=== PATIENT | female | born 1960 | race Caucasian/White ===

== ENCOUNTER 2021-07-27 08:18 | Emergency (ER) | payer BC, SELFPAY ==
[2021-07-27 08:49] VITALS: BP 146/76; PULSE 73; RESP 16; TEMP 37.1; O2SAT 100
--- NOTE | 2021-07-27 09:18 | ED.EAR ---
HPI - Ear Problem General Chief complaint: Ear Stated complaint: ear pain Source: patient and RN notes reviewed Limitations: no limitations History of Present Illness HPI Narrative: The patient, previously mostly healthy, presents with right ear discomfort. Patient states he is 1/2-week history of right ear fleeting pains, that is worse with palpation. No fever, URI?sinusitis, discharge.ENT history remarkable for she was seen by her PMD had wax removed well before this earlier in the month, and recent treatment for right corneal ulcer. There is associated, but preceding, mild decrease in hearing; patient advised to see ENT in follow-up. Vital signs remarkable for blood pressure 146/76. The patient has been informed that they may have pre-hypertension or Hypertension based on a BP reading in the department. I recommend that the patient call the primary care provider listed on their discharge instructions or a physician of their choice this week to arrange follow up for further evaluation of possible pre-hypertension or Hypertension Related Data Home Medications Medication Instructions Recorded Confirmed dextroamphetamine-amphetamine 20 mg PO DAILY 07/27/21 07/27/21 [Adderall XR] levothyroxine 50 mcg PO DAILY 07/27/21 07/27/21 moxifloxacin 0.5 drp OPHTHALMIC (EYE) DAILY 07/27/21 07/27/21 Allergies Allergy/AdvReac Type Severity Reaction Status Date / Time Sulfa (Sulfonamide Allergy Unknown Other Verified 07/27/21 08:19 Antibiotics) Review of Systems Review of Systems: General/Constitutional: No weight loss,fever Eyes: N0: Redness,discharge Ears/Nose/Throat: No: Epistaxis,ear discharge Respiratory: Denies: Hemoptysis Gastrointestinal: No Vomiting, Bleeding-rectal Skin: No Lumps, eruption Neurologic: No Focal Weakness,Sz Hematologic: Denies: Petechiae/Purpura Psychiatric: No: Suicida ideationl All Other Systems: Reviewed and Negative PMFSH Social History Social History Smoking status: Never smoker Alcohol intake: current Comments At time of signature, agree with nursing past medical, surgical, social and family history. There is no relevant family history pertinent to the presenting complaint Exam Narrative: General Appearance: Well appearing, Well nourished EYE: PERRLA, Conjunctiva clear Ears: Right EAC with mild erythema/inflammation; left auditory canal normal, TM normal Nose: Rhinorrhea, Mucousal erythema Mouth/Throat: MM moist, Uvula midline, Pharyngeal erythema , Supple, No adenopathy Cardiovascular: RRR, No JVD Musculoskeletal: Non tender, Normal strength, Warm, Dry Neurological: A&O x3, Normal affect Course Vital Signs Vital signs: Vital Signs Temperature 98.8 F 07/27/21 08:49 Pulse Rate 73 07/27/21 08:49 Respiratory Rate 16 07/27/21 08:49 Blood Pressure 146/76 H 07/27/21 08:49 Pulse Oximetry 100 07/27/21 08:49 Temperature 98.8 F 07/27/21 08:49 Pulse Rate 73 07/27/21 08:49 Respiratory Rate 16 07/27/21 08:49 Blood Pressure 146/76 H 07/27/21 08:49 Pulse Oximetry 100 07/27/21 08:49 Medical Decision Making Vital Signs Vital Signs: Vital Signs Temperature 98.8 F 07/27/21 08:49 Pulse Rate 73 07/27/21 08:49 Respiratory Rate 16 07/27/21 08:49 Blood Pressure 146/76 H 07/27/21 08:49 Pulse Oximetry 100 07/27/21 08:49 Temperature 98.8 F 07/27/21 08:49 Pulse Rate 73 07/27/21 08:49 Respiratory Rate 16 07/27/21 08:49 Blood Pressure 146/76 H 07/27/21 08:49 Pulse Oximetry 100 07/27/21 08:49 Discharge Plan Discharge Clinical Impression: Otitis externa Patient Disposition: Home, Self-Care Condition: Stable Instructions: Swimmer's [facility] (ED) Prescriptions: New llzaabou-kxnwwcyam-NT 3.5-10,000-1 mg/mL-unit/mL-% solution 4 drop RIGHT EAR Q8H Qty: 10 RF: 0 No Action dextroamphetamine-amphetamine [Adderall XR] 20 mg capsule,extended release 24hr 20 mg PO DAILY RF: 0 levoth
== END 2021-07-27 09:26 | disposition home or self-care (01) ==
PROVIDERS: Emergency Provider Emergency Medicine; PCP Internal Medicine
DX: H60.91 Unspecified otitis externa, right ear (principal)
CPT/HCPCS: 99213; G0463

== ENCOUNTER 2023-01-05 14:31 | Emergency (ER) | payer MEDICAID, SELFPAY ==
[2023-01-05 14:42] VITALS: BP 129/81; PULSE 84; RESP 16; TEMP 36.8; O2SAT 99
--- NOTE | 2023-01-05 14:44 | ED.GENADULT ---
HPI - General Adult General Chief complaint: Head Injury Stated complaint: Fall Time Seen by Provider: 01/05/23 14:52 Source: patient, RN notes reviewed and old records reviewed Mode of arrival: ambulatory Limitations: no limitations History of Present Illness HPI narrative: 62-year-old female presents to the [facility] post fall. Patient states that she was playing with her grandson when she went to kick a ball and fell backwards hitting the back of her head. Reports nausea and blurry vision. No midline tenderness. Related Data Home Medications Medication Instructions Recorded Confirmed levothyroxine 50 mcg tablet 50 mcg PO DAILY 07/27/21 01/05/23 Allergies Allergy/AdvReac Type Severity Reaction Status Date / Time Sulfa (Sulfonamide AdvReac Unknown Nausea and Verified 01/05/23 15:50 Antibiotics) Vomiting Review of Systems Review of Systems: All systems reviewed & are unremarkable except as noted in HPI and below Constitutional: Constitutional: Reports no additional constitutional complaints Eyes: Eyes: Reports no additional eye complaints ENT: Reports system reviewed and no additional complaints, except as documented Cardiovascular: Cardiovascular: Reports no additional cardiovascular complaints, Denies chest pain and Denies dyspnea Respiratory: Respiratory: Reports no additional respiratory complaints, Denies chest congestion, Denies cough and Denies dyspnea Gastrointestinal: Gastrointestinal: Reports no additional gastrointestinal complaints, Denies abdominal pain, Denies nausea and Denies vomiting Musculoskeletal: Musculoskeletal: Reports no additional musculoskeletal complaints Integumentary/Breasts: Skin/Breast: Reports system reviewed and no additional complaints, except as docu Neurologic: Reports as per HPI, Reports headache(s) and Reports other (blurry vision) Psychiatric: Psychiatric: Reports no additional psychiatric complaints Allergic/Immunologic: Allergic/Immunologic: Reports no additional allergic/immunologic complaints PMFSH Social History Social History Smoking status: Never smoker Alcohol intake: current Comments At the time of my signature, I reviewed and agree with the nursing past medical, surgical, social, and family history. There is no relevant family history pertinent to the patient complaint. Exam Const: General: cooperative, healthy appearing, comfortable, no acute distress, well developed, alert and well nourished Nutritional Appearance: well nourished Orientation/consciousness: patient oriented x3 Limitations: no limitations HENMT: Head: normal to inspection Ears: hearing grossly normal bilaterally and external ears normal Face/Nose/Sinus: Normal external nose present, Normal nares present, Normal nasal mucous membranes and turbinates present and normal facial exam Face and sinus: normal facial exam Mouth: Yes Normal oral and palatal mucosa present, Yes lip normal and Yes moist mucous membranes Throat: posterior oropharynx normal and uvula midline Eyes: General: appearance normal, both eyes and all related structures Alignment and Position: alignment normal Periorbital: periorbital findings normal Conjunctivae: conjunctivae normal Pupils: Equal, round and reactive pupils present EOM: EOMs intact bilaterally Neck: Neck: normal visual inspection, full ROM, no lymphadenopathy and no meningeal signs Chest: Chest palpation & inspection: normal inspection of the chest Resp: Effort & Inspection: normal respiratory effort and able to speak in complete sentences Auscultation: clear to auscultation bilaterally, no crackles, no rales, no rhonchi and no wheezes Cardio: Rate: regular rate Rhythm: regular rhythm Back/Spine/Pelvis: Back: no CVA tenderness Cervical Spine: normal cervical lordosis, cervical ROM normal, No cervical muscular tenderness and No Cervical spine tenderness Thoracic/Lumbar Spine: thoracic
== END 2023-01-05 15:08 | disposition short-term general hospital (02) ==
LOC: EXPCOLL 14:37
PROVIDERS: Emergency Provider Nurse Practitioner; PCP Internal Medicine
DX: S09.90XA Unspecified injury of head, initial encounter (principal); W19.XXXA Unspecified fall, initial encounter; E03.9 Hypothyroidism, unspecified
CPT/HCPCS: 99213; G0463

== ENCOUNTER 2023-01-05 15:29 | Emergency (ER) | payer MEDICAID, SELFPAY ==
--- NOTE | ~2023-01-05 | CT_ITS ---
EXAMINATION: CT cervical spine wo con DATE: 01/05/2023 16:21 INDICATION: fall TECHNIQUE: Computed tomography (CT) of the cervical spine was performed without intravenous contrast. Automated exposure control and iterative reconstruction technique were employed. The dose-length pro duct was 175.44 mGy-cm. COMPARISON: None. FINDINGS: Vertebral Body Alignment: Intact. Straightening of the cervical lordosis which can occur with positio rito or muscle spasm.. Craniocervical and atlantoaxial alignment: Moderate degenerative change. Alignment intact. Osseous structures/fracture: No evidence of a lytic or blastic process in the visualized spine. No e vidence of acute fracture. . Cervical soft tissues: The paraspinal soft tissues planes are maintained. Biapical pleural scarring. Degenerative changes: Degenerative changes, without severe central canal narrowing. Moderate-severe r ight C5-6 and left C6-7 neural foraminal narrowing. IMPRESSION: No acute fracture or traumatic malalignment in the cervical spine. Reviewed, dictated and finalized at location K.
--- NOTE | ~2023-01-05 | CT_ITS ---
EXAMINATION: CT brain wo con DATE: 01/05/2023 16:19 INDICATION: fall . TECHNIQUE: Computed tomography (CT) of the head was performed without intravenous contrast. The mA wa s adjusted according to patient size. Iterative reconstruction technique was employed. The dose-lengt h product was 605.33 mGy-cm. COMPARISON: MRI brain 11/27/2017. FINDINGS: No acute intracranial hemorrhage or extra-axial fluid collection. No hydrocephalus, mass, or herniation. No acute ischemic infarct. Unremarkable dural venous sinus attenuation. No acute osseous abnormality. The aerated spaces are clear. IMPRESSION: No acute intracranial process. Reviewed, dictated and finalized at location K.
[2023-01-05 15:39] VITALS: BP 141/85; PULSE 75; RESP 16; TEMP 36.6; O2SAT 100
--- NOTE | 2023-01-05 15:56 | ED.HEATRA ---
HPI - Head Injury General Chief complaint: Head Injury Stated complaint: head injury Time Seen by Provider: 01/05/23 15:46 History of Present Illness HPI Narrative: Patient is a 62-year-old female presenting after head injury. Patient states that she was playing with her grandson when she accidentally stepped on a ball and fell backwards striking her head. Denies losing consciousness. States that she has a headache and feels a bit nauseated. States that she had an episode of some blurred vision in her left eye that has resolved. Patient denies neck or back pain. Remembers the entire event. She denies further pain or complaints. Denies numbness or weakness. Denies difficulty ambulating. Related Data Home Medications Medication Instructions Recorded Confirmed levothyroxine 50 mcg tablet 50 mcg PO DAILY 07/27/21 01/05/23 Allergies Allergy/AdvReac Type Severity Reaction Status Date / Time Sulfa (Sulfonamide AdvReac Unknown Nausea and Verified 01/05/23 15:50 Antibiotics) Vomiting Review of Systems Review of Systems: All systems reviewed & are unremarkable except as noted in HPI and below PMFSH Social History Social History Smoking status: Never smoker Alcohol intake: current Exam Narrative: GENERAL: Well-appearing, well-nourished, and in no acute distress. HEAD: Normocephalic, atraumatic. EYES: PERRLA and EOMI. ENT: Nares clear, no rhinorrhea or epistaxis. Mucous membranes moist. NECK: Supple. No midline tenderness CHEST: Clear to auscultation. No respiratory distress. HEART: Regular rate and rhythm ABDOMEN: Soft, nontender, nondistended EXTREMITIES: Normal range of motion. No edema. SKIN: Warm, dry, no rash. NEURO: No focal deficits. Alert and oriented x3. 5 out of 5 strength in all extremities, no sensory deficits PSYCH: Normal mood and affect. Course Vital Signs Vital signs: Vital Signs Temperature 97.8 F 01/05/23 15:39 Pulse Rate 75 01/05/23 15:39 Respiratory Rate 16 01/05/23 15:39 Blood Pressure 141/85 H 01/05/23 15:39 Pulse Oximetry 100 01/05/23 15:39 Temperature 97.8 F 01/05/23 15:39 Pulse Rate 75 01/05/23 15:39 Respiratory Rate 16 01/05/23 15:39 Blood Pressure 141/85 H 01/05/23 15:39 Pulse Oximetry 100 01/05/23 15:39 MDM - Head Injury MDM Narrative Medical decision making narrative: Patient is a 62-year-old female presenting after mechanical fall. Vitals within normal limits. Patient is well-appearing and in no acute distress. Exam for p.o. Tylenol and Zofran. Will obtain CT brain and cervical spine. CT brain and cervical spine show no acute abnormalities. On reevaluation, the patient states that she feels well. Discussed the reassuring imaging. Advised that she follow-up with her PCP. Recommended Tylenol and ibuprofen for pain control. Appropriate return precautions given. Discharged in stable condition Differential Diagnosis Differential diagnosis: Likely concussion without loss of consciousness, epidural hematoma, closed head injury, subarachnoid hematoma and subdural hematoma Imaging Data Radiologist's impression: ITS Impressions Head CT 01/05/23 16:25 IMPRESSION: No acute intracranial process. Cervical Spine CT 01/05/23 16:27 IMPRESSION: No acute fracture or traumatic malalignment in the cervical spine. Critical Care Time Critical Care Time Critical Care Time: No Discharge Plan Discharge Clinical Impression: Closed head injury Patient Disposition: Home, Self-Care Condition: Stable Instructions: Antibiotic Form, Head Injury (ED) Additional Instructions: Your CT scans today show no acute abnormalities. Please use Tylenol and ibuprofen for pain control. Please follow-up with your primary care provider. If your pain worsens, you develop numbness or weakness, vomiting, or other concerning symptoms arise, ple
[2023-01-05] MEDS: ACETAMINOPHEN 500 MG TABLET 1000 MG PO (16:07)
[2023-01-05] MEDS: ONDANSETRON HCL ODT 4 MG TABLET PO (16:07)
== END 2023-01-05 17:30 | disposition home or self-care (01) ==
PROVIDERS: Emergency Provider Emergency Medicine; PCP Internal Medicine
DX: S09.90XA Unspecified injury of head, initial encounter (principal); W01.0XXA Fall on same level from slipping, tripping and stumbling without subsequent striking against object, initial encounter
CPT/HCPCS: 70450; 72125; 99284; A9270

== ENCOUNTER 2023-01-05 19:56 | Emergency (ER) | payer MEDICAID, SELFPAY ==
[2023-01-05 20:00] VITALS: BP 157/88; PULSE 65; RESP 16; TEMP 36.5; O2SAT 100
--- NOTE | 2023-01-05 20:02 | ED.FEMALEGU ---
HPI - Female Genitourinary General Chief complaint: Urogenital-Female Stated complaint: uti complaint Time Seen by Provider: 01/05/23 20:30 Source: patient, RN notes reviewed and old records reviewed Mode of arrival: ambulatory Limitations: no limitations History of Present Illness HPI Narrative: 62-year-old female presents to the [facility] with complaints of urgency, frequency, unable to empty bladder and burning since being discharged from the ER this evening. States when she was in the ER she did not urinate the entire time and thinks that is what caused it. Denies any abdominal pain, nausea, vomiting, diarrhea. Denies any CVA tenderness or back pain. Onset (ago): hour(s) Related Data Home Medications Medication Instructions Recorded Confirmed levothyroxine 50 mcg tablet 50 mcg PO DAILY 07/27/21 01/05/23 Allergies Allergy/AdvReac Type Severity Reaction Status Date / Time Sulfa (Sulfonamide AdvReac Unknown Nausea and Verified 01/05/23 15:50 Antibiotics) Vomiting Review of Systems Review of Systems: All systems reviewed & are unremarkable except as noted in HPI and below Constitutional: Constitutional: Reports no additional constitutional complaints Eyes: Eyes: Reports no additional eye complaints ENT: Reports system reviewed and no additional complaints, except as documented Cardiovascular: Cardiovascular: Reports no additional cardiovascular complaints, Denies chest pain and Denies dyspnea Respiratory: Respiratory: Reports no additional respiratory complaints, Denies chest congestion, Denies cough and Denies dyspnea Gastrointestinal: Gastrointestinal: Reports no additional gastrointestinal complaints, Denies abdominal pain, Denies nausea and Denies vomiting Genitourinary: Genitourinary: Reports as per HPI Musculoskeletal: Musculoskeletal: Reports no additional musculoskeletal complaints Integumentary/Breasts: Skin/Breast: Reports system reviewed and no additional complaints, except as docu Neurologic: Reports system reviewed and no additional complaints, except as documented Psychiatric: Psychiatric: Reports no additional psychiatric complaints Allergic/Immunologic: Allergic/Immunologic: Reports no additional allergic/immunologic complaints [facility] Social History Social History Smoking status: Never smoker Alcohol intake: current Comments At the time of my signature, I reviewed and agree with the nursing past medical, surgical, social, and family history. There is no relevant family history pertinent to the patient complaint. Exam Const: General: cooperative, healthy appearing, comfortable, no acute distress, well developed, alert and well nourished Nutritional Appearance: well nourished Orientation/consciousness: patient oriented x3 Limitations: no limitations HENMT: Head: normal to inspection Ears: hearing grossly normal bilaterally and external ears normal Face/Nose/Sinus: Normal external nose present, Normal nares present, Normal nasal mucous membranes and turbinates present and normal facial exam Face and sinus: normal facial exam Mouth: Yes lip normal Eyes: General: appearance normal, both eyes and all related structures Alignment and Position: alignment normal Periorbital: periorbital findings normal Conjunctivae: conjunctivae normal Pupils: Equal, round and reactive pupils present EOM: EOMs intact bilaterally Neck: Neck: normal visual inspection, full ROM, no lymphadenopathy and no meningeal signs Chest: Chest palpation & inspection: normal inspection of the chest Resp: Effort & Inspection: normal respiratory effort and able to speak in complete sentences Auscultation: clear to auscultation bilaterally, no crackles, no rales, no rhonchi and no wheezes Cardio: Rate: regular rate Rhythm: regular rhythm Back/Spine/Pelvis: Cervical Spine: cervical ROM normal Thoracic/Lumbar Spine: No thoracic spinal tenderness Skin: Ge
== END 2023-01-05 20:40 | disposition home or self-care (01) ==
PROVIDERS: Emergency Provider Nurse Practitioner; PCP Internal Medicine
DX: N39.0 Urinary tract infection, site not specified (principal); E03.9 Hypothyroidism, unspecified
CPT/HCPCS: 81003; 87086; 87088; 99213; G0463

== ENCOUNTER 2023-05-16 08:07 | Emergency (ER) | payer BC, SELFPAY ==
--- NOTE | 2023-05-16 08:12 | ED.EAR ---
HPI - Ear Problem General Chief complaint: Ear Stated complaint: Left Ear Irritation Source: patient and RN notes reviewed History of Present Illness HPI Narrative: 63 yo F presents to urgent care with complaints of left ear pain since the beginning of March. Pt states it originated when she pulled a large amount of wax out of her left ear. Pt states she thought she might have scratched her ear but the pain is not going away and it is now radiating down her left lateral neck and up her left side of head. Pt reports tragus pain. Denies any hearing loss, fevers, chills, sore throat, congestion, chest pain, SOB, or vomiting. Related Data Home Medications Medication Instructions Recorded Confirmed levothyroxine 50 mcg tablet 50 mcg PO DAILY 07/27/21 01/05/23 Allergies Allergy/AdvReac Type Severity Reaction Status Date / Time Sulfa (Sulfonamide AdvReac Unknown Nausea and Verified 01/05/23 15:50 Antibiotics) Vomiting Review of Systems Review of Systems: CONSTITUTIONAL: Denies fever, chills, or sweats. EYES: Denies visual changes, redness, or discharge. ENT: Left outer and inner ear pain, tenderness to to left lateral neck CARDIOVASCULAR: Denies chest pain, palpitations, or edema. RESPIRATORY: Denies cough or dyspnea. GASTROINTESTINAL: Denies abdominal pain, nausea, vomiting, or diarrhea. GENITOURINARY: Denies dysuria or hematuria. SKIN: Denies rash or itching. MUSCULOSKELETAL: Denies back pain, joint pain, or myalgia. NEUROLOGIC: Left sided PAIZ Pertinent positives per HPI. PMFSH Social History Social History Smoking status: Never smoker Alcohol intake: current Comments At the time of my signature, I reviewed and agree with the nursing past medical, surgical, social, and family history. There is no relevant family history pertinent to the patient complaint. Exam Narrative: GENERAL: This is a well-nourished, well-developed patient, in no apparent distress. HEAD: normocephalic, atraumatic. EYES: Sclera clear/white. Vision is grossly intact. EARS: auditory canals clear and without drainage, TMs normal without perforation. Hearing grossly intact. Left posterior tragus tender with possible, tiny, pustule. no drainage or erythema noted. NOSE: External nose normal with no obvious nasal discharge, nares without redness, no rhinorrhea. THROAT: Mucous membranes moist, posterior pharynx clear. NECK: Left, cervical,tenderness with lymphadenopathy. CARDIOVASCULAR: Regular rate and rhythm without murmurs, gallops, or rubs. RESPIRATORY: Clear to auscultation. Breath sounds equal bilaterally. No wheezes, rales, or rhonchi. SKIN: warm, intact with no suspicious lesions or rash, good texture and turgor. NEURO: awake, alert, and oriented to person, place and time. There were no obvious focal neurologic abnormalities. Course Course Level of Care: Express Care Visit Vital Signs Vital signs: Vital Signs Temperature 97.8 F 05/16/23 08:19 Pulse Rate 72 05/16/23 08:19 Respiratory Rate 16 05/16/23 08:19 Blood Pressure 142/96 H 05/16/23 08:19 Pulse Oximetry 100 05/16/23 08:19 Oxygen Delivery Room Air 05/16/23 08:19 Temperature 97.8 F 05/16/23 08:19 Pulse Rate 72 05/16/23 08:19 Respiratory Rate 16 05/16/23 08:19 Blood Pressure 142/96 H 05/16/23 08:19 Pulse Oximetry 100 05/16/23 08:19 Oxygen Delivery Room Air 05/16/23 08:19 Reviewed Medical Decision Making MDM Narrative Medical decision making narrative: Take the antibiotics as directed. Drink plenty of fluids. Increase your Vitamin C. Follow up with your primary teaching assistant if symptoms persist after 1 week of antibiotics. Differential Diagnosis Differential Diagnosis: AOM, otitis externa, lymphadenopathy, strep throat Vital Signs Vital Signs: Vital Signs Temperature 97.8 F 05/16/23 08:19 Pulse Rate 72 05/16/23 08:19 Respiratory Rate 16
[2023-05-16 08:19] VITALS: BP 142/96; PULSE 72; RESP 16; TEMP 36.6; O2SAT 100
== END 2023-05-16 08:33 | disposition home or self-care (01) ==
PROVIDERS: Emergency Provider Nurse Practitioner Family; PCP Internal Medicine
DX: R59.1 Generalized enlarged lymph nodes (principal)
CPT/HCPCS: 99213; G0463

== ENCOUNTER 2023-07-03 18:34 | Emergency (ER) | payer BC, SELFPAY ==
[2023-07-03 18:44] VITALS: BP 136/90; PULSE 84; RESP 16; TEMP 37.3; O2SAT 99
--- NOTE | 2023-07-03 19:04 | ED.URI ---
HPI - URI/Sore Throat General Chief Complaint: Upper Respiratory Infection Stated Complaint: sore throat,congesting,pain in center of back Time Seen by Provider: 07/03/23 18:52 Source: patient and RN notes reviewed Mode of arrival: ambulatory Limitations: no limitations History of Present Illness HPI Narrative: Patient presents today complaining fever 2 days ago up to 100.5, 3 day history of postnasal drainage with body aches and sneezing, and sore throat that developed today. She has been taking Zyrtec with little relief and currently rates her pain 3/10, which increases with swallowing. Related Data Home Medications Medication Instructions Recorded Confirmed levothyroxine 50 mcg tablet 50 mcg PO DAILY 07/27/21 07/03/23 Allergies Allergy/AdvReac Type Severity Reaction Status Date / Time Sulfa (Sulfonamide AdvReac Unknown Nausea and Verified 07/03/23 18:55 Antibiotics) Vomiting Review of Systems Review of Systems: CONSTITUTIONAL: Denies body aches, chills, or sweats.+ fever EYES: Denies visual changes, redness, or discharge. ENT: Denies rhinorrhea, congestion, or otalgia.+ sore throat, postnasal drip, sneezing CARDIOVASCULAR: Denies chest pain, palpitations, or edema. RESPIRATORY: Denies cough or dyspnea. GASTROINTESTINAL: Denies abdominal pain, nausea, vomiting, or diarrhea. GENITOURINARY: Denies dysuria or hematuria. SKIN: Denies rash, itching, or wounds. MUSCULOSKELETAL: Denies back pain, joint pain, or myalgia. NEUROLOGIC: Denies headache, numbness, tingling, or weakness. PSYCH: Denies depression or anxiety. PMFSH Social History Social History Smoking status: Never smoker Alcohol intake: current Comments Reviewed Exam Narrative: GENERAL: Well-appearing, well-nourished, and in no acute distress. HEAD: Normocephalic, atraumatic. EYES: EOMI. No redness or drainage. Conjunctivae normal. ENT: Mucous membranes pink and moist. Nares clear. No rhinorrhea. TMs normal bilaterally. Throat erythematous without edema or exudate. Uvula midline. NECK: Normal AROM. Supple. No lymphadenopathy. CHEST: No respiratory distress. Clear to auscultation. HEART: Regular rate and rhythm. No murmur appreciated. EXTREMITIES: Normal range of motion. No edema. SKIN: Warm, dry, no rash. Capillary refill normal. Normal skin turgor. NEURO: No focal deficits. Alert and oriented x3. Gait steady. PSYCH: Normal affect. No signs of depression or anxiety. Course Course Level of Care: Express Care Visit Vital Signs Vital signs: Vital Signs Temperature 99.2 F 07/03/23 18:44 Pulse Rate 84 07/03/23 18:44 Respiratory Rate 16 07/03/23 18:44 Blood Pressure 136/90 07/03/23 18:44 Pulse Oximetry 99 07/03/23 18:44 Oxygen Delivery Room Air 07/03/23 18:44 Temperature 99.2 F 07/03/23 18:44 Pulse Rate 84 07/03/23 18:44 Respiratory Rate 16 07/03/23 18:44 Blood Pressure 136/90 07/03/23 18:44 Pulse Oximetry 99 07/03/23 18:44 Oxygen Delivery Room Air 07/03/23 18:44 Reviewed MDM - URI/Sore Throat MDM Narrative Medical decision making narrative: Rapid strep positive. Prescription for amoxicillin sent to pharmacy. Anticipatory guidance given. Differential Diagnosis Differential diagnosis: Likely upper respiratory infection, viral infection, pharyngitis and other (Strep throat) Lab Data Attestation: I reviewed the patient's lab results. Labs: Strep Screen Positive Group A Strep *(Reference Range: Negative)* Critical Care Time Critical Care Time Critical Care Time: No Discharge Plan Discharge Clinical Impression: Strep throat Patient Disposition: Home, Self-Care Condition: Stable Instructions: Antibiotic Form, Strep Throat (DC) Additional Instructions: You have tested positive for strep throat. Please take the amoxicillin as prescr
== END 2023-07-03 19:16 | disposition home or self-care (01) ==
PROVIDERS: Emergency Provider Nurse Practitioner; PCP Internal Medicine
DX: J02.0 Streptococcal pharyngitis (principal)
CPT/HCPCS: 87880; 99213; G0463

== ENCOUNTER 2024-02-21 13:22 | Emergency (ER) | payer BC, SELFPAY ==
[2024-02-21 13:46] VITALS: BP 129/87; PULSE 88; RESP 16; TEMP 36.5; O2SAT 100
--- NOTE | 2024-02-21 14:06 | ED.URI ---
HPI - URI/Sore Throat General Chief Complaint: Upper Respiratory Infection Stated Complaint: Sore Throat Time Seen by Provider: 02/21/24 14:06 Source: patient Mode of arrival: ambulatory Limitations: no limitations History of Present Illness HPI Narrative: 63-year-old female presents with complaint of sore throat, low-grade fever, right ear pain with swallowing. Symptoms for 2 days. Exposed to strep throat 5 days ago. Patient denies fatigue, body aches, chills, nausea vomiting. All systems reviewed and negative except as noted above. Related Data Home Medications Medication Instructions Recorded Confirmed levothyroxine 50 mcg tablet 50 mcg PO DAILY 02/21/24 02/21/24 Allergies Allergy/AdvReac Type Severity Reaction Status Date / Time Sulfa (Sulfonamide AdvReac Unknown Nausea and Verified 07/03/23 18:55 Antibiotics) Vomiting Review of Systems Review of Systems: CONSTITUTIONAL: reports fever. Denies chills, or sweats. EYES: Denies visual changes, redness, or discharge. ENT: Denies rhinorrhea, congestion . Reports sore throat. Deniesotalgia. CARDIOVASCULAR: Denies chest pain, palpitations, or edema. RESPIRATORY: Denies cough or dyspnea. GASTROINTESTINAL: Denies abdominal pain, nausea, vomiting, or diarrhea. GENITOURINARY: Denies dysuria or hematuria. SKIN: Denies rash or itching. MUSCULOSKELETAL: Denies back pain, joint pain, or myalgia. NEUROLOGIC: Denies headache, numbness, or weakness. PSYCHIATRIC: Denies anxiety or depression. All other systems reviewed are negative, except as documented in HPI. PMFSH Social History Social History Smoking status: Never smoker Alcohol intake: current Comments At time of signature, agree with nursing past medical, surgical, social and family history. There is no relevant family history pertinent to the presenting complaint. Exam Narrative: GENERAL: This is a well-nourished, well-developed patient, in no apparent distress. HEAD: normocephalic, atraumatic. EYES: PERRL. Sclera clear/white. Vision is grossly intact. EARS: External ears normal, auditory canals clear and without drainage, TMs normal without perforation. Hearing grossly intact. NOSE: External nose normal with no obvious nasal discharge, nares without redness, no rhinorrhea. THROAT: Mucous membranes moist, mild erythema to posterior pharynx without swelling or exudates. NECK: Neck supple, non-tender without lymphadenopathy, masses or thyromegaly. CARDIOVASCULAR: Regular rate and rhythm without murmurs, gallops, or rubs. RESPIRATORY: Clear to auscultation. Breath sounds equal bilaterally. No wheezes, rales, or rhonchi. SKIN: warm, Dry, intact with no suspicious lesions or rash, good texture and turgor. NEURO: awake, alert, and oriented to person, place and time. There were no obvious focal neurologic abnormalities. EXTREMITIES: No joint tenderness, effusion, or edema noted. Course Course Level of Care: Express Care Visit Vital Signs Vital signs: Vital Signs Temperature 36.5 C 02/21/24 13:46 Pulse Rate 88 02/21/24 13:46 Respiratory Rate 16 02/21/24 13:46 Blood Pressure 129/87 02/21/24 13:46 Pulse Oximetry 100 02/21/24 13:46 Oxygen Delivery Room Air 02/21/24 13:46 Temperature 36.5 C 02/21/24 13:46 Pulse Rate 88 02/21/24 13:46 Respiratory Rate 16 02/21/24 13:46 Blood Pressure 129/87 02/21/24 13:46 Pulse Oximetry 100 02/21/24 13:46 Oxygen Delivery Room Air 02/21/24 13:46 Reviewed MDM - URI/Sore Throat MDM Narrative Medical decision making narrative: negative rapid strep test. Will wait for strep culture prior to treating with antibiotics. Patient agrees with plan of care. Patient well-appearing and nontoxic. Patient is aware of diagnosis, understands and agrees to treatment plan. Anticipatory guidance given. Patient agrees to follow-up as directed and is aware of reaso
== END 2024-02-21 14:25 | disposition home or self-care (01) ==
PROVIDERS: Emergency Provider Nurse Practitioner Family; PCP Internal Medicine
DX: J02.9 Acute pharyngitis, unspecified (principal); E03.9 Hypothyroidism, unspecified
CPT/HCPCS: 87081; 87880; 99213; G0463

== ENCOUNTER 2025-03-06 11:10 | Emergency (ER) | payer BC, SELFPAY ==
[2025-03-06 11:20] VITALS: BP 141/87; PULSE 73; RESP 14; TEMP 36.7; O2SAT 100
[2025-03-06 11:29] LABS: EDUAAPPEAR Clear; EDUABILI Negative (Negative); EDUABLOOD 1+ (Negative); EDUACOLOR1 Yellow; EDUAGLUCOSE Negative (Negative); EDUAKETONE Negative (Negative); EDUALEUKO 2+ (Negative); EDUANITRATE Negative (Negative); EDUAPH 7.0; EDUAPROTEIN Negative (Negative); EDUASPGRAVITY 1.010; EDUAUROBILI 0.2
--- NOTE | 2025-03-06 11:50 | ED_ITS ---
HPI - Female Genitourinary General Chief complaint: Urogenital-Female Stated complaint: Urinary Problems Time Seen by Provider: 03/06/25 11:51 Source: patient and RN notes reviewed Mode of arrival: ambulatory Limitations: no limitations History of Present Illness HPI Narrative: 64-year-old female presents with concern of for 1 day history of dysuria, frequency, urgency, feeling like she is not emptying her bladder completely. She reports some lower abdominal pressure, bladder spasms. She reports decreased appetite last night but has had no nausea or vomiting. She denies back pain. Denies fever, body aches, chills, sweats. Reports fatigue. Reports today she felt an episode of ?confusion?. MD elicited complaint: UTI Related Data Home Medications ?Medication ?Instructions ?Recorded ?Confirmed ?Last Taken ?Type levothyroxine 50 mcg tablet 50 mcg PO DAILY 02/21/24 02/21/24 Unknown History Allergies Allergy/AdvReac Type Severity Reaction Status Date / Time Sulfa (Sulfonamide AdvReac Unknown Nausea and Verified 07/03/23 18:55 Antibiotics) Vomiting Review of Systems Review of Systems: CONSTITUTIONAL: Denies malaise, chills, sweats, or fever. CARDIOVASCULAR: Denies chest pain, palpitations, or edema. RESPIRATORY: Denies cough or dyspnea. GASTROINTESTINAL: Denies abdominal pain, nausea, vomiting, diarrhea GENITOURINARY: Reports dysuria, frequency, urgency. Denies flank pain or he maturia. SKIN: Denies rash or itching. MUSCULOSKELETAL: Denies back pain or myalgia. All systems reviewed & are unremarkable except as noted in HPI and below PMFSH Social History Social History Smoking status: Never smoker Alcohol intake: current Comments At time of signature, agree with nursing past medical, surgical, social and family history. There is no relevant family history pertinent to the presenting complaint Exam Narrative: GENERAL: Well-appearing, well-nourished, and in no acute distress. HEAD: Normocephalic. EYES: PERRLA, conjunctivae clear. NECK: Supple. No lymphadenopathy CHEST: Clear to auscultation. No respiratory distress. HEART: Regular rate and rhythm. ABDOMEN: Soft, suprapubic pressure, nondistended, normal active bowel sounds, no palpable or pulsatile masses, no guarding. No CVA tenderness SKIN: Warm, dry, no rash. NEURO: Alert and oriented x3. PSYCH: Normal mood and affect Course Course Emergency Course: Patient is aware of diagnosis, understands and agrees to treatment plan. Anticipatory guidance given. Patient agrees to follow-up as directed and is aware of reasons to seek care at the emergency department. Portions of this record may have been created with voice recognition software Level of Care: Express Care Visit Vital Signs Vital signs: Vital Signs Temperature 98.1 F 03/06/25 11:20 Pulse Rate 73 03/06/25 11:20 Respiratory Rate 14 03/06/25 11:20 Blood Pressure 141/87 H 03/06/25 11:20 Pulse Oximetry 100 03/06/25 11:20 Oxygen Delivery Room Air 03/06/25 11:20 Temperature 98.1 F 03/06/25 11:20 Pulse Rate 73 03/06/25 11:20 Respiratory Rate 14 03/06/25 11:20 Blood Pressure 141/87 H 03/06/25 11:20 Pulse Oximetry 100 03/06/25 11:20 Oxygen Delivery Room Air 03/06/25 11:20 Reviewed. MDM - Female Genitourinary MDM Narrative Medical decision making narrative: Exam findings and UA show no acute concerns or changes; patient is non-toxic appearing and is in no distress. No CMT, adnexal tenderness, or evidence of pelvic etiology. Patient is appropriate for outpatient treatment and follow-up. Differential Diagnosis Differential diagnosis: Likely urinary tract infection and cystitis Lab Data Labs: Lab Results 03/06/25 Range/Units 11:27 POC Urine Color Yellow POC Urine Clarity Clear POC Urine pH 7.0 POC Ur Specif [place] 1.010 POC Urine Protein Negative (Negative) POC Ur Glucose (UA) Negative (Negative) POC Urine Ketones Negative (Negative) POC Urine Blood 1+ (Negative) POC Urine Nitrite Negative (Negative) POC Urine Bilirubin Negative (Negative) POC Urine Urobilinogen 0.2 POC U Leukocyte Esteras 2+ (Negative) Critical Care Time Critical Care Time Critical Care Time: No Discharge Plan Discharge Clinical Impression: Urinary tract infection Patient Disposition: Home Condition: Stable Instructions: Antibiotic Form, Urinary Tract Infection in Women (ED) Additional Instructions: We will send a urine culture to the lab; if the culture identifies an organism that the prescribed antibiotic will not treat, you will receive a phone call from an urgent care staff member and an appropriate antibiotic will be prescribed. -Your symptoms should begin to improve within a day of starting antibiotics. But you should finish all the antibiotic pills you get. Otherwise your infection might come back. -Also recommend: increase water intake. Tylenol/ibuprofen as needed for pain or fever -Follow-up with your primary care provider for urine recheck or seek ER visit if condition worsens with high fever, nausea, vomiting and severe back pain. Patient Language: Burmese Prescriptions: New amoxicillin-pot clavulanate 875-125 mg tablet 1 tablet PO Q12H 10 Days Qty: 20 0RF No Action levothyroxine 50 mcg tablet 50 mcg PO DAILY Follow-up/Referrals: PHYSICIAN NOT ON STAFF,NONSTAFF [Primary Care Provider] - Time of Disposition: 11:57
== END 2025-03-06 12:00 | disposition home or self-care (01) ==
PROVIDERS: Emergency Provider Nurse Practitioner
DX: N39.0 Urinary tract infection, site not specified (principal); E03.9 Hypothyroidism, unspecified
CPT/HCPCS: 81003; 87086; 87186; 99213; G0463

== ENCOUNTER 2025-03-29 16:38 | Emergency (ER) | payer BC, SELFPAY ==
[2025-03-29 16:47] VITALS: BP 154/89; PULSE 57; RESP 16; TEMP 37.3; O2SAT 100
[2025-03-29 16:58] LABS: EDUAAPPEAR Clear; EDUABILI Negative (Negative); EDUABLOOD Trace (Negative); EDUACOLOR1 Light/Pale; EDUAGLUCOSE Negative (Negative); EDUAKETONE Negative (Negative); EDUALEUKO 1+ (Negative); EDUANITRATE Negative (Negative); EDUAPH 6.0; EDUAPROTEIN Negative (Negative); EDUASPGRAVITY 1.005; EDUAUROBILI 0.2
--- NOTE | 2025-03-29 17:06 | ED_ITS ---
HPI - General Adult General Chief complaint: Urogenital-Female Stated complaint: Urinary Irritation Source: patient Mode of arrival: ambulatory Limitations: no limitations History of Present Illness HPI narrative: Pt is a 65 y/o female presenting with c/o urinary irritation. Reports concentrated urine, dysuria upon awakening this morning. Hx of similar, earlier this month--which was tx with Augmentin, with complete resolution of sx. No concern for STI. no tx initiated [facility]. NO additional complaints. Related Data Home Medications ?Medication ?Instructions ?Recorded ?Confirmed ?Last Taken ?Type levothyroxine 50 mcg tablet 50 mcg PO DAILY 02/21/24 02/21/24 Unknown History Allergies Allergy/AdvReac Type Severity Reaction Status Date / Time Sulfa (Sulfonamide AdvReac Unknown Nausea and Verified 03/29/25 16:43 Antibiotics) Vomiting Review of Systems Review of Systems: CONSTITUTIONAL: Denies body aches, fever, chills, or sweats. EYES: Denies visual changes, redness, or discharge. ENT: Denies rhinorrhea, congestion, sore throat, or otalgia. CARDIOVASCULAR: Denies chest pain, palpitations, or edema. RESPIRATORY: Denies cough or dyspnea. GASTROINTESTINAL: Denies abdominal pain, nausea, vomiting, or diarrhea. GENITOURINARY: Reports dysuria SKIN: Denies rash, itching, or wounds. MUSCULOSKELETAL: Denies back pain, joint pain, or myalgia. NEUROLOGIC: Denies headache, numbness, tingling, or weakness. PSYCH: Denies depression or anxiety. All systems reviewed & are unremarkable except as noted in HPI and below PMFSH Social History Social History Smoking status: Never smoker Alcohol intake: current Exam Narrative: GENERAL: Well-appearing, well-nourished, and in no acute distress. HEAD: Normocephalic, atraumatic. EYES: EOMI. No redness or drainage. Conjunctivae normal. ENT: Mucous membranes pink and moist. NECK: Normal AROM. Supple. CHEST: No respiratory distress. HEART: Regular rate ABDOMEN: Soft, nontender, nondistended, normal active bowel sounds. no CVAT SKIN: Warm, dry, no rash. Capillary refill normal. Normal skin turgor. NEURO: No focal deficits. Alert and oriented x3. Gait steady. PSYCH: Normal affect. No signs of depression or anxiety. Course Course Level of Care: Express Care Visit Vital Signs Vital signs: Vital Signs Temperature 99.1 F 03/29/25 16:47 Pulse Rate 57 L 03/29/25 16:47 Respiratory Rate 16 03/29/25 16:47 Blood Pressure 154/89 H 03/29/25 16:47 Pulse Oximetry 100 03/29/25 16:47 Oxygen Delivery Room Air 03/29/25 16:47 Temperature 99.1 F 03/29/25 16:47 Pulse Rate 57 L 03/29/25 16:47 Respiratory Rate 16 03/29/25 16:47 Blood Pressure 154/89 H 03/29/25 16:47 Pulse Oximetry 100 03/29/25 16:47 Oxygen Delivery Room Air 03/29/25 16:47 Medical Decision Making Vital Signs Vital Signs: Vital Signs Temperature 99.1 F 03/29/25 16:47 Pulse Rate 57 L 03/29/25 16:47 Respiratory Rate 16 03/29/25 16:47 Blood Pressure 154/89 H 03/29/25 16:47 Pulse Oximetry 100 03/29/25 16:47 Oxygen Delivery Room Air 03/29/25 16:47 Temperature 99.1 F 03/29/25 16:47 Pulse Rate 57 L 03/29/25 16:47 Respiratory Rate 16 03/29/25 16:47 Blood Pressure 154/89 H 03/29/25 16:47 Pulse Oximetry 100 03/29/25 16:47 Oxygen Delivery Room Air 03/29/25 16:47 Lab Data Lab results reviewed: Yes I reviewed the patient's lab results. Labs: Lab Results 03/29/25 Range/Units 16:51 POC Urine Color Light/pale POC Urine Clarity Clear POC Urine pH 6.0 POC Ur Specif [place] 1.005 POC Urine Protein Negative (Negative) POC Ur Glucose (UA) Negative (Negative) POC Urine Ketones Negative (Negative) POC Urine Blood Trace (Negative) POC Urine Nitrite Negative (Negative) POC Urine Bilirubin Negative (Negative) POC Urine Urobilinogen 0.2 POC U Leukocyte Esteras 1+ (Negative) Discharge Plan Discharge Clinical Impression: Dysuria, Elevated blood pressure reading in office without diagnosis of hypertension Patient Disposition: Home Condition: Stable Instructions: Antibiotic Form Additional Instructions: Go straight to ER should your symptoms become worse or should any new symptoms develop Patient Language: Georgian Prescriptions: New nitrofurantoin monohyd/m-cryst [Macrobid] 100 mg capsule 100 mg PO Q12H 5 Days Qty: 10 0RF Rx Instructions: must administer with a meal/food No Action levothyroxine 50 mcg tablet 50 mcg PO DAILY Follow-up/Referrals: PHYSICIAN,SUPERVISOR FRAME [employer]AMPLE AND PATTERN [Primary Care Provider] - 03/30/25 Time of Disposition: 17:08
== END 2025-03-29 17:21 | disposition home or self-care (01) ==
PROVIDERS: Emergency Provider Registered Nurse
DX: R30.0 Dysuria (principal); R03.0 Elevated blood-pressure reading, without diagnosis of hypertension
CPT/HCPCS: 81003; 87086; 99213; G0463

== ENCOUNTER 2025-04-16 12:51 | Emergency (ER) | payer BC, SELFPAY ==
--- NOTE | 2025-04-16 12:57 | ED.GENADULT ---
HPI - General Adult General Chief complaint: Urogenital-Female Stated complaint: UTI Time Seen by Provider: 04/16/25 12:57 Source: patient Mode of arrival: ambulatory Limitations: no limitations History of Present Illness HPI narrative: 65-year-old female patient presents to the [facility] with complaints of urinary symptoms that started in the middle the night. Patient states she has had frequent UTIs in the month of February and feels like she just can not shake it. Patient states she used to see urologist about 20 years ago when she got frequent UTIs with sexual intercourse but has not had any issues since then. Patient states she is going through menopause. Patient no longer has any menstrual cycles. Denies fevers body aches or chills. Patient denies any low back pain but does have some abdominal cramping and pain with urination. Denies any blood into the urine that she is aware of. Related Data Home Medications ?Medication ?Instructions ?Recorded ?Confirmed ?Last Taken ?Type levothyroxine 50 mcg tablet 50 mcg PO DAILY 02/21/24 02/21/24 Unknown History Allergies Allergy/AdvReac Type Severity Reaction Status Date / Time Sulfa (Sulfonamide AdvReac Unknown Nausea and Verified 04/16/25 12:53 Antibiotics) Vomiting Review of Systems Review of Systems: CONSTITUTIONAL: Denies fever, chills, or sweats. EYES: Denies visual changes, redness, or discharge. ENT: Denies rhinorrhea, congestion, sore throat, or otalgia. CARDIOVASCULAR: Denies chest pain, palpitations, or edema. RESPIRATORY: Denies cough or dyspnea. GASTROINTESTINAL: Denies abdominal pain, nausea, vomiting, or diarrhea. GENITOURINARY: Positive dysuria denies hematuria. SKIN: Denies rash or itching. MUSCULOSKELETAL: Denies back pain, joint pain, or myalgia. NEUROLOGIC: Denies headache, numbness, or weakness. PSYCHIATRIC: Denies anxiety or depression. [facility] Past Medical History Medical History (Updated 04/16/25 @ 13:26 by BAUDILIO Hernandez) Tumor of ovary Frequent UTI Surgical History Surgical History (Updated 04/16/25 @ 13:26 by BAUDILIO Hernandez) Hx of removal of ovary Social History Social History Smoking status: Never smoker Alcohol intake: current Comments At the time of my signature I agree with nursing past medical history, surgical, social, and family history. There is no relevant family history pertinent to the presenting complaint. Exam Narrative: GENERAL: Well-appearing, well-nourished, and in no acute distress. HEAD: Normocephalic, atraumatic. EYES: PERRLA and EOMI. ENT: Nares clear, no rhinorrhea or epistaxis. Mucous membranes moist. NECK: Supple. No lymphadenopathy CHEST: Clear to auscultation. No respiratory distress. HEART: Regular rate and rhythm. No murmur heard. Normal peripheral pulses. ABDOMEN: Soft, nontender, nondistended, normal active bowel sounds. No CVA tenderness on percussion EXTREMITIES: Normal range of motion. No edema. SKIN: Warm, dry, no rash. NEURO: No focal deficits. Alert and oriented x3. Course Course Level of Care: Express Care Visit Vital Signs Vital signs: Vital Signs Temperature 36.8 C 04/16/25 13:00 Pulse Rate 72 04/16/25 13:00 Respiratory Rate 18 04/16/25 13:00 Blood Pressure 120/81 04/16/25 13:00 Pulse Oximetry 99 04/16/25 13:00 Oxygen Delivery Room Air 04/16/25 13:00 Temperature 36.8 C 04/16/25 13:00 Pulse Rate 72 04/16/25 13:00 Respiratory Rate 18 04/16/25 13:00 Blood Pressure 120/81 04/16/25 13:00 Pulse Oximetry 99 04/16/25 13:00 Oxygen Delivery Room Air 04/16/25 13:00 Vital signs reviewed. Medical Decision Making MDM Narrative Medical decision making narrative: Discussed with patient that her UTI does show 2+ leukocytes. Discussed with patient we will discharge her home with some oral antibiotics for possible urinary tract infections and that the urine off to the lab for culture. I will refer her to urologist today for follow-up since she has been getting this more frequently. Discussed with patient also highly recommend taking a probiotic and vitamins to kind of help boost her immune system but may need to have her hormones checked because sometimes at this age, hormones can play a factor in frequent UTIs. Patient verbalized understanding denies any other questions or concerns at this time. Differential Diagnosis Differential Diagnosis: Differential diagnosis: Uncomplicated lower UTI, uncomplicated UTI, pyelonephritis Vital Signs Vital Signs: Vital Signs Temperature 36.8 C 04/16/25 13:00 Pulse Rate 72 04/16/25 13:00 Respiratory Rate 18 04/16/25 13:00 Blood Pressure 120/81 04/16/25 13:00 Pulse Oximetry 99 04/16/25 13:00 Oxygen Delivery Room Air 04/16/25 13:00 Temperature 36.8 C 04/16/25 13:00 Pulse Rate 72 04/16/25 13:00 Respiratory Rate 18 04/16/25 13:00 Blood Pressure 120/81 04/16/25 13:00 Pulse Oximetry 99 04/16/25 13:00 Oxygen Delivery Room Air 04/16/25 13:00 Lab Data Labs: Lab Results 04/16/25 Range/Units 13:07 POC Urine Color Yellow POC Urine Clarity Clear POC Urine pH 5.5 POC Ur Specif [place] 1.015 POC Urine Protein Negative (Negative) POC Ur Glucose (UA) Negative (Negative) POC Urine Ketones Negative (Negative) POC Urine Blood Trace (Negative) POC Urine Nitrite Negative (Negative) POC Urine Bilirubin Negative (Negative) POC Urine Urobilinogen 0.2 POC U Leukocyte Esteras 2+ (Negative) Critical Care Time Critical Care Time Critical Care Time: No Discharge Plan Discharge Clinical Impression: Urinary tract infection Patient Disposition: Home Condition: Stable Instructions: Antibiotic Form, Urinary Tract Infection in Women (ED) Additional Instructions: We will send a urine culture off to the lab; if the culture identifies an organism that the prescribed antibiotic will not treat, you will receive a phone call from an urgent care staff member and an appropriate antibiotic will be prescribed. -Your symptoms should begin to improve within a day of starting antibiotics. But you should finish all the antibiotic pills you get. Otherwise your infection might come back. -Also recommend: drink more fluid. It might help flush out germs, and it does no harm -Tylenol/ibuprofen prn for pain or fever -Follow-up with your primary care provider for urine recheck or seek ER visit if condition worsens with high fever, nausea, vomiting and severe back pain. Patient Language: Malay Prescriptions: New cephalexin 500 mg capsule 500 mg PO Q12H 7 Days Qty: 14 0RF No Action levothyroxine 50 mcg tablet 50 mcg PO DAILY Follow-up/Referrals: Shelton Concepcion MD [Physician] - PHYSICIAN,CERTIFIED DRUG COUNSELOR [Primary Care Provider] - Time of Disposition: 13:24
[2025-04-16 13:00] VITALS: BP 120/81; PULSE 72; RESP 18; TEMP 36.8; O2SAT 99
[2025-04-16 13:10] LABS: EDUAAPPEAR Clear; EDUABILI Negative (Negative); EDUABLOOD Trace (Negative); EDUACOLOR1 Yellow; EDUAGLUCOSE Negative (Negative); EDUAKETONE Negative (Negative); EDUALEUKO 2+ (Negative); EDUANITRATE Negative (Negative); EDUAPH 5.5; EDUAPROTEIN Negative (Negative); EDUASPGRAVITY 1.015; EDUAUROBILI 0.2
== END 2025-04-16 13:30 | disposition home or self-care (01) ==
PROVIDERS: Emergency Provider Nurse Practitioner Family
DX: N39.0 Urinary tract infection, site not specified (principal)
CPT/HCPCS: 81003; 87086; 99213; G0463